=== PATIENT | male | born 1990 | race African-American/Black ===

== ENCOUNTER 2019-08-24 23:32 | Emergency (ER) | payer MEDICAID ==
[~2019-08-24] VITALS: Ht 185.4 cm; Wt 81.8 kg
[2019-08-25] MEDS ORDERED: ALBU2TAB4 PO
[2019-08-25] MEDS ORDERED: LIDOCAINE 2% 5 ML JELLY TP ONE (04:30)
[2019-08-25] MEDS ORDERED: LIDOCAINE 1% 10 ML VIAL INJ ONE (05:00)
[2019-08-25 05:05] VITALS: BP 117/78
== END 2019-08-25 05:22 | disposition home or self-care (01) ==
LOC: EMS 23:35
DX: S61.512A Laceration without foreign body of left wrist, initial encounter (principal); S00.81XA Abrasion of other part of head, initial encounter; J45.909 Unspecified asthma, uncomplicated; Z88.2 Allergy status to sulfonamides; W25.XXXA Contact with sharp glass, initial encounter; Y93.89 Activity, other specified; Y92.89 Other specified places as the place of occurrence of the external cause; Y99.8 Other external cause status
CPT/HCPCS: 12002; 99283; J3490